=== PATIENT | female | born 1960 | race Two or more races ===

== ENCOUNTER 2021-10-11 13:37 | Emergency (ER) | payer BC ==
[~2021-10-11] VITALS: Ht 162.6 cm; Wt 81.6 kg
[2021-10-11] MEDS ORDERED: SIMBRINZA 1%-0.28 ML OP (14:51)
[2021-10-11] MEDS ORDERED: TRAVATAN Z5 ML (14:52)
[2021-10-11] MEDS ORDERED: KETO10TA2 PO (20:14)
== END 2021-10-11 20:48 | disposition home or self-care (01) ==
LOC: ER 13:37
DX: S82.892A Other fracture of left lower leg, initial encounter for closed fracture (principal); W18.30XA Fall on same level, unspecified, initial encounter; Z91.81 History of falling; Y93.9 Activity, unspecified; Y92.89 Other specified places as the place of occurrence of the external cause